=== PATIENT | male | born 1995 | race Caucasian/White ===

== ENCOUNTER 2019-07-31 11:01 | Emergency (ER) | payer SELFPAY | END 2019-07-31 13:16 | disposition home or self-care (01) | LOC: ERS 11:01 | DX: S64.91XA Injury of unspecified nerve at wrist and hand level of right arm, initial encounter (principal); X58.XXXA Exposure to other specified factors, initial encounter | CPT/HCPCS: 99284 ==

== ENCOUNTER 2020-04-18 13:14 | Emergency (ER) | payer OTHER ==
[2020-04-18 14:36] LABS: Bilirubin Negative (Negative); Blood, Urine Negative (Negative); Clarity Clear (Clear); Glucose, Urine (Dipstick) Normal (Negative); Ketone, Urine Negative (Negative); Leukocyte Negative Leu/uL (Negative); Nitrite Negative (Negative); Protein, Urine (Dipstick) Negative (Neg-Trace); Urobilinogen Normal mg/dL (Less than 2)
== END 2020-04-18 15:14 | disposition home or self-care (01) ==
LOC: ERS 13:14
DX: F11.10 Opioid abuse, uncomplicated (principal); R33.9 Retention of urine, unspecified; F41.9 Anxiety disorder, unspecified; F31.9 Bipolar disorder, unspecified; Z87.891 Personal history of nicotine dependence
CPT/HCPCS: 51702; 81003